=== PATIENT | female | born 1990 | race Caucasian/White ===

== ENCOUNTER 2017-09-16 17:49 | Emergency (ER) | payer OTHER ==
[~2017-09-16] VITALS: Ht 160 cm; Wt 97.5 kg
[2017-09-16 17:49] VITALS: BP 120/53
--- NOTE | 2017-09-16 18:38 | NUR ---
IRRIGATED PATIENT'S EAR WITH NS AND HYDROGEN PEROXIDE, EAR CERUMEN PRESENT IN R EAR, PATIENT FELT INSTANT RELIEF IRRIGATION CONCLUDED.
== END 2017-09-16 18:52 | disposition home or self-care (01) ==
LOC: ER 17:52
DX: H61.21 Impacted cerumen, right ear (principal); R42 Dizziness and giddiness; F17.200 Nicotine dependence, unspecified, uncomplicated